=== PATIENT | female | born 1955 | race Caucasian/White ===

== ENCOUNTER 2018-05-30 16:25 | Inpatient (IN) | payer OTHER ==
[~2018-05-30] VITALS: Ht 162.6 cm; Wt 64.9 kg
[2018-05-30] MEDS ORDERED: ASPI81TA31 PO (16:39)
[2018-05-30] MEDS ORDERED: LOSA25TA27 PO (16:39)
[2018-05-30] MEDS ORDERED: IV NORMAL SALINE 1000 ML BAG IV ONE (17:30)
[2018-05-30 17:32] LABS: BASOPHILS % (AUTO) 0.6 % (0.0-2.0); EOSINOPHILS # (AUTO) 0.1 K/uL (0.0-0.7); EOSINOPHILS % (AUTO) 1.2 % (0.0-7.0); HEMATOCRIT 38.6 % (31.2-41.9); HEMOGLOBIN 12.5 g/dL (10.9-14.3); LYMPHOCYTES # (AUTO) 1.8 K/uL (20.0-40.0); LYMPHOCYTES % (AUTO) 30.5 % (20.5-51.5); MEAN CORPUSCULAR HGB CONC 33 g/dL (32.3-35.6); MEAN CORPUSCULAR VOLUME 80.1 fL (75.5-95.3); MONOCYTES # (AUTO) 0.4 K/uL (2.0-10.0); MONOCYTES % (AUTO) 5.9 % (0.0-11.0); NEUTROPHILS # (AUTO) 3.7 K/uL (1.8-8.9); NEUTROPHILS % (AUTO) 61.8 % (38.5-71.5); PLATELET COUNT (AUTO) 202 K/uL (179-408); RED BLOOD CELL COUNT(AUTO) 4.82 MIL/uL (3.63-4.92)
[2018-05-30 17:42] LABS: CREATININE 0.8 mg/dL (0.6-1.3); POTASSIUM 3.4 mmol/L (3.5-5.1)
[2018-05-30 17:48] LABS: BILIRUBIN,DIRECT 0.1 mg/dL (0.0-0.2); BILIRUBIN,TOTAL 0.5 mg/dL (0.2-1.0); TOTAL PROTEIN, SERUM 7.6 g/dL (6.4-8.2)
[2018-05-30] MEDS ORDERED: SWABABLE VALVE TRANSFER SET EA MC ONE (17:48)
[2018-05-30] MEDS ORDERED: IOHEXOL 300MG/ML 100 ML INFUS..BTL ONE (17:48)
[2018-05-30] MEDS ORDERED: NORMAL SALINE FLUSH 10 ML DISP.SYRIN ONE (17:48)
[2018-05-30] MEDS ORDERED: IV NORMAL SALINE 0 ML IV ONE (17:48)
[2018-05-30] MEDS ORDERED: LORAZEPAM 2 MG/1 ML VIAL ONE (18:05)
[2018-05-30] MEDS ORDERED: LORAZEPAM 2 MG/1 ML VIAL IV ONE (18:15)
[2018-05-30 20:55] VITALS: BP_SYST 139; BP_SYST 163; BP_DIAS 68
[2018-05-30 21:35] LABS: BASOPHILS % (AUTO) 0.5 % (0.0-2.0); EOSINOPHILS # (AUTO) 0.1 K/uL (0.0-0.7); EOSINOPHILS % (AUTO) 1.6 % (0.0-7.0); HEMATOCRIT 36.8 % (31.2-41.9); HEMOGLOBIN 12.2 g/dL (10.9-14.3); LYMPHOCYTES # (AUTO) 1.7 K/uL (20.0-40.0); LYMPHOCYTES % (AUTO) 33.4 % (20.5-51.5); MEAN CORPUSCULAR HEMOGLOBIN 26.3 uug (24.7-32.8); MEAN CORPUSCULAR HGB CONC 33 g/dL (32.3-35.6); MEAN CORPUSCULAR VOLUME 79.4 fL (75.5-95.3); MONOCYTES # (AUTO) 0.3 K/uL (2.0-10.0); MONOCYTES % (AUTO) 5.5 % (0.0-11.0); PLATELET COUNT (AUTO) 199 K/uL (179-408); RED BLOOD CELL COUNT(AUTO) 4.63 MIL/uL (3.63-4.92); WHITE BLOOD COUNT (AUTO) 5.1 K/uL (3.8-11.8)
[2018-05-30] MEDS: SIMVASTATIN 40 MG TABLET PO SCH (21:38)
[2018-05-30 21:46] LABS: CREATININE 0.7 mg/dL (0.6-1.3); POTASSIUM 3.1 mmol/L (3.5-5.1)
[2018-05-30] MEDS: BLOOD SUGAR DIAGNOSTIC 1 EACH STRIP VI SCH (21:46)
[2018-05-30 21:52] LABS: BILIRUBIN,TOTAL 0.4 mg/dL (0.2-1.0); TOTAL PROTEIN, SERUM 6.9 g/dL (6.4-8.2)
[2018-05-30 21:58] LABS: THYROID STIMULATING HORMONE 1.882 mIU/mL (0.358-3.740)
[2018-05-30] MEDS: ACETAMINOPHEN 325 MG TABLET PO PRN (22:45)
[2018-05-31] MEDS ORDERED: BLOOD SUGAR DIAGNOSTIC 1 EACH STRIP VI SCH
[2018-05-31 00:57] VITALS: BP 140/65
[2018-05-31 04:00] VITALS: BP 128/60
[2018-05-31] MEDS: ACETAMINOPHEN 325 MG TABLET PO PRN ×2 (05:12→11:15)
[2018-05-31] MEDS: BLOOD SUGAR DIAGNOSTIC 1 EACH STRIP VI SCH ×4 (06:31→20:46)
[2018-05-31 06:52] LABS: BASOPHILS % (AUTO) 0.5 % (0.0-2.0); EOSINOPHILS # (AUTO) 0.1 K/uL (0.0-0.7); EOSINOPHILS % (AUTO) 2.2 % (0.0-7.0); HEMATOCRIT 35.4 % (31.2-41.9); HEMOGLOBIN 11.7 g/dL (10.9-14.3); LYMPHOCYTES # (AUTO) 1.1 K/uL (20.0-40.0); LYMPHOCYTES % (AUTO) 33.5 % (20.5-51.5); MEAN CORPUSCULAR HGB CONC 33 g/dL (32.3-35.6); MONOCYTES # (AUTO) 0.2 K/uL (2.0-10.0); MONOCYTES % (AUTO) 7.3 % (0.0-11.0); NEUTROPHILS # (AUTO) 1.9 K/uL (1.8-8.9); NEUTROPHILS % (AUTO) 56.5 % (38.5-71.5); PLATELET COUNT (AUTO) 179 K/uL (179-408); RED BLOOD CELL COUNT(AUTO) 4.49 MIL/uL (3.63-4.92); WHITE BLOOD COUNT (AUTO) 3.3 K/uL (3.8-11.8)
[2018-05-31 06:58] LABS: CREATININE 0.7 mg/dL (0.6-1.3); POTASSIUM 3.4 mmol/L (3.5-5.1)
[2018-05-31] MEDS: LOSARTAN POTASSIUM 25 MG TABLET PO SCH ×2 (08:55→16:51)
[2018-05-31 08:56] LABS: *BILIRUBIN,URIN NEGATIVE (NEGATIVE); *BLOOD, URINE 2+ (NEGATIVE); *CLARITY,URINE CLEAR (CLEAR); *COLOR,URINE LIGHT YELLOW (YELLOW); *KETONES,URINE NEGATIVE (NEGATIVE); *UROBILINOGEN,URINE 0.2 E.U./dl (NORMAL); LEUKOCYTE ESTERASE ,URINE TRACE (NEGATIVE); NITRITE, URINE NEGATIVE (NEGATIVE); PH,URINE 5.5 (5.0-8.0); UGLUCOSE NEGATIVE (NEGATIVE)
[2018-05-31] MEDS ORDERED: ASPIRIN 81 MG TAB.CHEW PO SCH (09:00)
[2018-05-31 09:02] LABS: MUCUS,URINE FEW /LPF (0-FEW); SQUAMOUS EPITHELIAL CELL,UR FEW /HPF (NONE SEEN)
[2018-05-31 09:04] LABS: BACTERIA,URINE NONE SEEN /HPF (NONE SEEN)
[2018-05-31 11:44] VITALS: BP 125/54
[2018-05-31] MEDS ORDERED: POTASSIUM CHLORIDE 20 MEQ TAB.PRT.SR PO ONE (12:15)
[2018-05-31] MEDS ORDERED: TRAMADOL HCL 50 MG TABLET PO PRN (14:00)
[2018-05-31] MEDS ORDERED: TRAMADOL HCL 50 MG TABLET PO SCH (14:00)
[2018-05-31 16:00] VITALS: BP 139/75
[2018-05-31] MEDS ORDERED: LORAZEPAM 1 MG TABLET PO PRN (19:15)
[2018-05-31 19:18] VITALS: BP 138/64
[2018-05-31] MEDS: SIMVASTATIN 40 MG TABLET PO SCH (20:36)
[2018-05-31] MEDS: TRAMADOL HCL 50 MG TABLET PO PRN (20:53)
[2018-05-31 23:50] VITALS: BP 114/53
[2018-06-01 03:21] VITALS: BP 127/58
[2018-06-01] MEDS: BLOOD SUGAR DIAGNOSTIC 1 EACH STRIP VI SCH ×4 (06:50→20:48)
[2018-06-01 07:53] LABS: BASOPHILS % (AUTO) 0.4 % (0.0-2.0); EOSINOPHILS # (AUTO) 0.1 K/uL (0.0-0.7); HEMATOCRIT 37.4 % (31.2-41.9); HEMOGLOBIN 12.3 g/dL (10.9-14.3); LYMPHOCYTES # (AUTO) 1.4 K/uL (20.0-40.0); LYMPHOCYTES % (AUTO) 27.4 % (20.5-51.5); MEAN CORPUSCULAR HEMOGLOBIN 26.1 uug (24.7-32.8); MEAN CORPUSCULAR HGB CONC 33 g/dL (32.3-35.6); MEAN CORPUSCULAR VOLUME 79.3 fL (75.5-95.3); MONOCYTES # (AUTO) 0.3 K/uL (2.0-10.0); MONOCYTES % (AUTO) 5.1 % (0.0-11.0); NEUTROPHILS # (AUTO) 3.5 K/uL (1.8-8.9); NEUTROPHILS % (AUTO) 66.1 % (38.5-71.5); PLATELET COUNT (AUTO) 192 K/uL (179-408); RED BLOOD CELL COUNT(AUTO) 4.71 MIL/uL (3.63-4.92); WHITE BLOOD COUNT (AUTO) 5.3 K/uL (3.8-11.8)
[2018-06-01 08:00] VITALS: BP_SYST 127; BP_SYST 129; BP_DIAS 49; BP_DIAS 58
[2018-06-01 08:06] LABS: CREATININE 0.7 mg/dL (0.6-1.3); MAGNESIUM 1.8 mg/dL (1.8-2.4); POTASSIUM 4.2 mmol/L (3.5-5.1)
[2018-06-01] MEDS: ASPIRIN EC 325 MG TABLET.DR PO SCH (09:00)
[2018-06-01] MEDS: LOSARTAN POTASSIUM 25 MG TABLET PO SCH ×2 (10:53→10:55)
[2018-06-01 11:39] VITALS: BP 128/52
[2018-06-01] MEDS: ACETAMINOPHEN 325 MG TABLET PO PRN (12:53)
[2018-06-01 15:46] VITALS: BP 141/69
[2018-06-01] MEDS: TRAMADOL HCL 50 MG TABLET PO PRN (15:46)
[2018-06-01 19:24] VITALS: BP 133/61
[2018-06-01] MEDS: SIMVASTATIN 40 MG TABLET PO SCH (20:43)
[2018-06-01] MEDS: METOPROLOL TARTRATE 25 MG TABLET PO SCH (20:43)
[2018-06-01 23:44] VITALS: BP 146/62
[2018-06-02 03:24] VITALS: BP 129/59
[2018-06-02] MEDS: BLOOD SUGAR DIAGNOSTIC 1 EACH STRIP VI SCH (06:34)
[2018-06-02] MEDS: METOPROLOL TARTRATE 25 MG TABLET PO SCH ×2 (09:00→20:45)
[2018-06-02] MEDS: ASPIRIN EC 325 MG TABLET.DR PO SCH ×2 (09:00→15:55)
[2018-06-02 11:17] VITALS: BP 124/56
[2018-06-02 13:33] VITALS: BP 134/52
[2018-06-02] MEDS: TRAMADOL HCL 50 MG TABLET PO PRN ×2 (13:59→19:46)
[2018-06-02 15:05] VITALS: BP 128/64
[2018-06-02 19:12] VITALS: BP 132/89
[2018-06-02] MEDS ORDERED: MIRALAX 17 GM POWD.PACK PO ONE (20:30)
[2018-06-02] MEDS: SIMVASTATIN 40 MG TABLET PO SCH (20:45)
[2018-06-02 23:46] VITALS: BP 120/58
[2018-06-03 03:16] VITALS: BP 108/34
[2018-06-03] MEDS ORDERED: MIRALAX 17 GM POWD.PACK PO ONE (06:00)
[2018-06-03] MEDS: METOPROLOL TARTRATE 25 MG TABLET PO SCH (08:45)
[2018-06-03] MEDS: TRAMADOL HCL 50 MG TABLET PO PRN (08:47)
[2018-06-03 11:02] VITALS: BP 108/44
[2018-06-03] MEDS ORDERED: MULTIVITAMINS,THERAPEUTIC TABLET PO SCH (11:30)
[2018-06-03] MEDS ORDERED: ASPI-610 PO (14:49)
[2018-06-03] MEDS ORDERED: TRAM50TA2 PO (14:49)
[2018-06-03] MEDS ORDERED: SIMV40TA5 PO (14:49)
== END 2018-06-03 15:00 | disposition home or self-care (01) | DRG 47 ==
LOC: ER 16:27 → TELE3 20:56
PROVIDERS: ATTEND Internal Medicine
PROC: B2211ZZ Computerized Tomography (CT Scan) of Multiple Coronary Arteries using Low Osmolar Contrast (ICD-10-PCS; principal; 2018-06-02)
DX: G45.9 Transient cerebral ischemic attack, unspecified (principal); I50.30 Unspecified diastolic (congestive) heart failure; I65.21 Occlusion and stenosis of right carotid artery; I44.7 Left bundle-branch block, unspecified; E87.6 Hypokalemia; I10 Essential (primary) hypertension; E78.5 Hyperlipidemia, unspecified; Z79.82 Long term (current) use of aspirin; I70.0 Atherosclerosis of aorta; I34.0 Nonrheumatic mitral (valve) insufficiency; R51 Headache; S02.92XS Unspecified fracture of facial bones, sequela; W19.XXXS Unspecified fall, sequela; I25.10 Atherosclerotic heart disease of native coronary artery without angina pectoris; I25.84 Coronary atherosclerosis due to calcified coronary lesion
CPT/HCPCS: 36415; 70030-TC; 70450; 70551; 71045; 83735; 84100; 84443; 85025; 85651; 85730; 92523; 92610; 93005; 93307; 93880; 97112; 97116; 97165; 97535; A4663; G0378; J2060; J3490; J7030; J7050; Q9967